=== PATIENT | male | born 1985 | race Caucasian/White ===

== ENCOUNTER 2022-06-26 23:20 | Emergency (ER) | payer OTHER, SELFPAY ==
[2022-06-26 23:34] VITALS: BP 128/88; PULSE 84; O2SAT 97
[2022-06-26 23:38] VITALS: BP 128/88; PULSE 86; RESP 15; TEMP 36.6; O2SAT 98; BMI 20.9
[2022-06-27] VITALS: BP 109/63; PULSE 83; O2SAT 97
[2022-06-27 00:30] VITALS: BP 112/65; PULSE 77; O2SAT 97
[2022-06-27 01:00] VITALS: BP 123/80; PULSE 84; O2SAT 99
--- NOTE | 2022-06-27 01:27 | ED_ITS ---
HPI - Skin/Abscess/Foreign Bdy General Chief complaint: Skin/Abscess/Foreign Body Stated complaint: spider bites/both legs/abd. Time Seen by Provider: 06/27/22 00:00 Source: patient Mode of arrival: Ambulatory Limitations: no limitations History of Present Illness HPI narrative: 37-year-old gentleman currently without stable housing presents complaining of infections over the upper thighs and pubis area concerned that they may be spider bites. Medical history is unremarkable. Does have a history of occasional marijuana use and occasional psychedelics are club drugs but tends to avoid methamphetamine and opiates. He notes that he has been wearing his usual genes lately and has not had the opportunity to showers much as he typically does. He describes no fevers, cough, chills. 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 Over the medial thighs he has a couple of areas of folliculitis. On the right medial thigh 1 has turned into an area of cellulitis approximately 6 cm in diameter. Has a 2 cm draining abscess on the right side of his scrotum without surrounding cellulitis. There is a 2 cm abscess that is draining over the mons pubis with surrounding 5-6 cm of cellulitis. There is no evidence of necrotizing fasciitis and because both areas of abscess are draining additional I and D is not felt to be indicated today. Neurologic: Grossly intact no obvious asymmetries or abnormalities Psych: appropriate insight and affect, cooperative Course Vital Signs Vital signs: Vital Signs - 8 hr 06/26/22 23:38 06/26/22 23:34 06/26/22 23:34 Temperature 97.8 F Pulse Rate 86 84 Respiratory Rate 15 Blood Pressure 128/88 128/88 Pulse Oximetry 98 97 Oxygen Delivery Method Room Air 06/27/22 00:00 06/27/22 00:00 Temperature Pulse Rate 83 Respiratory Rate Blood Pressure 109/63 Pulse Oximetry 97 Oxygen Delivery Method MDM - Skin/Abscess/Foreign Bdy MDM Narrative Medical decision making narrative: CC: Lesions to the lower extremities with concern for bug bites Acute problem, new diagnosis with uncertain prognosis Complicating co-morbidities: Housing instability Data collected from: patient, Social determinants of health that may influence the patients condition: Housing instability Differential considered: Folliculitis, cellulitis, abscess, bug bites, flea bites, methamphetamine abuse Exam documented above, pertinent findings include: Areas of folliculitis, cellulitis and abscess without severe necrotizing infection Lab Test not felt to be indicated with this visit Discussion: 37-year-old gentleman who has been living out of his car for the last couple of weeks. He has gone for an extended period of time without a shower and is noticing these areas of inflammation. On further examination they all seem to be perifollicular are definitely not bug bites and do not appear to be ?picking lesions? due to methamphetamine. With the draining small abscess to the right side of the scrotum and the mons pubis will place him on Septra for 10 days. 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 Discussed the use of dial soap to reduce overall bacterial counts and trying to prevent any additional areas of folliculitis that have the potential to worsen into abscess or cellulitis. He states that he can shower regularly and has used and will absolutely by dial soap again. Questions are answered and he is safe for discharge home Discharge Plan Departure Patient Disposition: Home Clinical Impression: Folliculitis Cellulitis Qualifiers: Site of cellulitis: other site Qualified Code(s): L03.818 - Cellulitis of other sites Abscess of skin or subcutaneous tissue Qualifiers: Site of cutaneous abscess: unspecified site Qualified Code(s): L02.91 - Cutaneous abscess, unspecified Instructions: DI for Cellulitis -- Adult, DI for Skin Abscess Activity Restrictions/Additional Instructions: Thank you for coming in today Fortunately, all of your little folliculitis infections are not deep enough or severe enough that we need to do additional testing or hospitalization today. Because of the area over your pubis, I do want to be on 10 days of antibiotics. This is already healing so additional drainage is not required. Do allow it to continue to drain and please do not pick or push at it. Same recommendations for the small abscess on the right side of your scrotum. I would recommend buying dial soap and doing your best to shower daily. Dial soap is actually antibacterial and can reduce overall bacterial counts to try and prevent any other episodes of folliculitis. I have given you a prescription for Septra along with the 1st dose in the emergency department. It is to be taken morning and night for the next 10 days. If you find that you are getting worse or develop any new symptoms, please feel free to return to the emergency department for further evaluation. Prescriptions: New sulfamethoxazole-trimethoprim [Bactrim DS] 800-160 mg tablet 1 tab PO BID Qty: 20 0RF Stand Alone Forms: Patient Portal/API
[2022-06-27 01:30] VITALS: PULSE 91; O2SAT 97
[2022-06-27] MEDS: TRIMETH/SULFA 160/800 (DS) TABLET 1 TAB PO (01:42)
== END 2022-06-27 01:52 | disposition home or self-care (01) ==
PROVIDERS: Emergency Provider Emergency Medicine
DX: L03.818 Cellulitis of other sites (principal); L03.115 Cellulitis of right lower limb; L02.415 Cutaneous abscess of right lower limb; L02.215 Cutaneous abscess of perineum
CPT/HCPCS: 99283

== ENCOUNTER 2023-08-28 13:59 | Emergency (ER) | payer OTHER, SELFPAY ==
[2023-08-28 14:02] VITALS: BP 124/79; PULSE 92; RESP 16; TEMP 36.6; O2SAT 99; BMI 19.3
--- NOTE | 2023-08-28 14:05 | ED_ITS ---
HPI - General Adult General Chief complaint: Toxicology Problem Stated complaint: Found Down - Respiratory Failure Time Seen by Provider: 08/28/23 14:01 History of Present Illness HPI narrative: 38-year-old male with history of polysubstance abuse, ongoing methamphetamine use, ongoing fentanyl powder use, also occasionally smokes marijuana, denies alcohol use, has been in rehab facility in the last couple of months [facility], has moved to the [facility]. Arrived by EMS after being found unresponsive in local [employer] bathroom, bystanders initiated CPR, EMS found patient to have pulse that was present, received intranasal Narcan x2 doses, became responsive, spontaneous breathing, no CPR by EMS. He denies chest pain. He denies intent to harm himself. He states that he was using fentanyl powder like he usually does, not a new formulation, but believes that he might have inhaled longer and kept it inside longer before exhaling than usual. Last methamphetamine use earlier today. No shaking seizure activity, no incontinence of urine and stool. He has no numbness or weakness to face arm or leg. Currently he feels okay, denies chest pain after CPR performed. 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 HEAD: Atraumatic. Normocephalic. EYES: Pupils equal round and reactive. Extraocular motions intact. No scleral icterus. No injection or drainage. ENT: Nose without bleeding, purulent drainage. Throat without erythema, tonsillar hypertrophy or exudate. Airway patent. NECK: Trachea midline. Non tender CARDIOVASCULAR: Regular rate and rhythm without murmurs, gallops, or rubs. RESPIRATORY: Clear to auscultation. Breath sounds equal bilaterally. No wheezes, rales, or rhonchi. GASTROINTESTINAL: Abdomen soft, non-tender, nondistended. EXTREMITIES: No edema or joint tenderness. BACK: Nontender without deformity or crepitance. No flank tenderness. NEURO: AOx3. SKIN: No rash or erythema of visible areas Initial Vital Signs Initial Vital Signs: Vital Signs Temperature 97.8 F 08/28/23 14:02 Pulse Rate 92 H 08/28/23 14:02 Respiratory Rate 16 08/28/23 14:02 Blood Pressure 124/79 08/28/23 14:02 Pulse Oximetry 99 08/28/23 14:02 Oxygen Delivery Method Room Air 08/28/23 14:02 Course Orders Ordered: ED Orders 08/28/23 14:08 Consult to COAL INSPECTOR - Marketing Strategy Analyst Stat Discontinued Medications Naloxone HCl 2 mg/ Sodium (Chloride) 500 mls @ 62.5 mls/hr IV TITRATE DICK; Protocol Vital Signs Vital signs: Vital Signs - 8 hr 08/28/23 15:00 08/28/23 15:00 Pulse Rate 75 Respiratory Rate 13 Blood Pressure 115/70 Pulse Oximetry 100 Medical Decision Making [facility] Narrative Medical decision making narrative: 38-year-old male with accidental fentanyl overdose, respiratory depression and bystander CPR in context of recreational inhaled fentanyl at local restaurant bathroom, EMS gave intranasal Narcan 2 doses, responsive, breathing on his own, alert, no neuro deficits, no complaints. Denies thoughts of harming himself or others. States that he perhaps inhaled his usual fentanyl dose/formulation longer than usual, might have gotten too much on board. Last methamphetamine use earlier today. We will consult social problems specialist. We will observe for respiratory depression, Narcan infusion available at bedside if needed. 1505, patient is still breathing well, alert, has supplies of Narcan at home, advised to not use opiates when he is alone around people who were not familiar with his use, advised to train his friends/family on Narcan use in case others need to administer it. He was seen by perinatal social worker, would like to follow up with outpatient [facility], given resources. Home with friends. Return precautions discussed. Discharge Plan Departure Patient Disposition: Home Clinical Impression: Accidental fentanyl overdose Activity Restrictions/Additional Instructions: Accidental fentanyl overdose, unresponsiveness and [place] [employer], bystander CPR, EMS called, found you were breathing and had a pulse, they did not initiate any CPR, but did administer intranasal doses of Narcan, he then became alert and responds. You were watched for a number of hours in the emergency department, remained stable, no trouble breathing. Discharged home. You have a supply of Narcan intranasal at home, instructed to have it on your person and have persons close to use such as family and friends be aware that you have the dose on your person, and have instructions on how to administer it if they need to. You are encouraged to stop opiate and methamphetamine and other drug use, given contact resources for [facility] through perinatal social worker in the emergency department. Discharged home with friends. Encouraged to follow up with the [facility]. Follow up to this/nearest emergency department for any change worsening symptoms or any concerns prior Prescriptions: No Action sulfamethoxazole-trimethoprim [Bactrim DS] 800-160 mg tablet 1 tab PO BID Qty: 20 0RF Referrals: Miscellaneous,Doctor, [Primary Care Provider] - Stand Alone Forms: Patient Portal/API
[2023-08-28 14:30] VITALS: BP 120/76; PULSE 86; RESP 15; O2SAT 100
[2023-08-28 15:00] VITALS: BP 115/70; PULSE 75; RESP 13; O2SAT 100
--- NOTE | 2023-08-28 15:13 | CM.SWNOTE ---
ED POPCORN MACHINE OPERATOR Assessment Note: Pt is a 38yo male, resident of [place], presents to the ED via EMS for an unintentional OD from fentanyl. Pt was found unresponsive in a [employer] bathroom and had Narcan administered to him. POPCORN MACHINE OPERATOR was consulted to discuss pt's goals of care regarding his substance use. POPCORN MACHINE OPERATOR entered room, introduced self and role. Pt was found lying in bed, alert and oriented, cooperative with assessment. Pt confirmed that he recently moved to [place] from [place], [place]. Pt is currently staying with a friend, does not know their address. Pt does not have a primary care provider established yet. POPCORN MACHINE OPERATOR discussed next steps; pt was open to obtaining Substance Use resources as he recently completed detox program in [place], [place]. g
--- NOTE | 2023-08-28 15:23 | CM.SWNOTE ---
ED SPANISH LINGUIST Assessment Note: Pt is a 38yo male, resident of [place], presents to the ED via EMS for an unintentional OD from fentanyl. Pt was found unresponsive in a [employer] bathroom and had Narcan administered to him. SPANISH LINGUIST was consulted to discuss pt's goals of care regarding his substance use. SPANISH LINGUIST entered room, introduced self and role. Pt was found lying in bed, alert and oriented, cooperative with assessment. Pt confirmed that he recently moved to [place] from [place], [place]. Pt is currently staying with a friend, does not know their address. Pt does not have a primary care provider established yet. SPANISH LINGUIST discussed next steps; pt was open to obtaining Substance Use resources as he recently completed detox program in [place], [place]. SPANISH LINGUIST discussed outpatient [facility]/DELIO clinic and pt agreed to referral. Pt is hopeful to return to sobriety without the use of Medication Assisted Treatment. Pt denies SI/HI. Pt explains he is typically safe with use, has all types of narcan and a safety line lead when using. Pt agreed to prescription of narcan upon discharge. SPANISH LINGUIST provided pt with resources for [facility] to establish DELIO counseling services and link for [facility] Primary Care Providers. Pt declined assistance with transport as his friend is in waiting room ready to transport at ma. Plan: Pt to discharge when medically cleared. Pt to follow up with [facility] for DELIO treatment and will establish PCP as soon as possible. PAUL Beebe
== END 2023-08-28 15:26 | disposition home or self-care (01) ==
PROVIDERS: Emergency Provider Emergency Medicine
DX: T40.411A Poisoning by fentanyl or fentanyl analogs, accidental (unintentional), initial encounter (principal)
CPT/HCPCS: 99283